=== PATIENT | female | born 1950 | race Caucasian/White ===

== ENCOUNTER 2018-07-19 08:09 | Outpatient (CLI) | payer MEDICARE ==
--- NOTE | 2018-07-19 11:59 | MMO ---
Bilateral MAMMO Bilat Screen [facility]. CLINICAL HISTORY: Patient is 67 years old and is seen for screening. The patient has the following family history of breast cancer: maternal grandmother. The patient has a history of other cancer. The patient has a history of right Stereotatic Biopsy in 2009 - benign and left Stereotatic Biopsy in 2009 - benign. VIEWS: The views performed were: bilateral craniocaudal with tomosynthesis and bilateral mediolateral oblique with tomosynthesis. FILMS COMPARED: The present examination has been compared to prior imaging studies performed at [facility] on 12/04/2008, 07/12/2010, 11/28/2012 and 12/10/2013. MAMMOGRAM FINDINGS: There are scattered fibroglandular densities. There are benign appearing calcifications. A biopsy clip is seen in the right breast. A biopsy clip is seen in the left breast. There are no suspicious masses, suspicious calcifications, or new areas of architectural distortion. IMPRESSION: THERE IS NO MAMMOGRAPHIC EVIDENCE OF MALIGNANCY. A ROUTINE FOLLOW-UP MAMMOGRAM IN 1 YEAR IS RECOMMENDED. THE RESULTS OF THIS EXAM WERE SENT TO THE PATIENT. ACR BI-RADS Category 2 - Benign finding MAMMOGRAPHY NOTE: 1. A negative mammogram report should not delay a biopsy if a dominant of clinically suspicious mass is present. 2. Approximately 10% to 15% of breast cancers are not detected by mammography. 3. Adenosis and dense breasts may obscure an underlying neoplasm.
== END 2018-07-19 08:10 | disposition home or self-care (01) ==
LOC: BICMAMMO 08:09
PROVIDERS: ATTEND Family Medicine
DX: Z12.31 Encounter for screening mammogram for malignant neoplasm of breast (principal); Z80.3 Family history of malignant neoplasm of breast; Z85.89 Personal history of malignant neoplasm of other organs and systems
CPT/HCPCS: 77063; 77067

== ENCOUNTER 2021-07-18 22:17 | Emergency (ER) | payer MEDICARE ==
[2021-07-18 23:19] LABS: #Eosinphils 0.2 thou/uL (0.0-0.7); #Lymphocytes 1.5 thou/uL (1.20-3.40); #Monocytes 0.7 thou/uL (0.11-0.59); #Neutrophils 5.9 thou/uL (1.40-6.50); %Basophils 0.4 % (0.0-1.0); %Eosinophils 2.2 % (0.0-10.0); %Lymphocytes 18.2 % (21.0-51.0); %Neutrophils 71.2 % (42.0-75.0); Hemoglobin 11.1 g/dL (12.0-16.0); Mean Corpuscular HGB CONC 32.5 g/dL (32.0-36.0); Mean Corpuscular Hemoglobin 29.1 pg (27.0-31.0); Mean Corpuscular Volume 89.5 fL (78.0-98.0); Mean Platelet Volume 6.5 fL (7.4-10.4); Platelet Count 219 thou/uL (130-400); RBC Distribution Width 13.1 % (11.5-14.5); Red Blood Cell (RBC) Count 3.82 mill/uL (4.20-5.40); White Blood Cell (WBC) Count 8.3 thou/uL (4.8-10.8)
[2021-07-18 23:42] LABS: ALT (SGPT) 18 U/L (8-55); AST (SGOT) 18 U/L (5-34); Acetaminophen Less than 10.0 mcg/mL (10.0-30.0); Albumin 3.8 g/dL (3.4-4.8); Alcohol Less than 10 mg/dL (Less than 10); Alkaline Phosphatase 55 U/L (40-110); Anion Gap 13 mmol/L (10-20); BUN (Urea Nitrogen) 30 mg/dL (9.8-20.1); Bilirubin, Total 0.2 mg/dL (0.2-1.2); Calc. Creatinine Clearance 0 mL/min (70-130); Calcium 10.6 mg/dL (7.8-10.44); Carbon Dioxide 24 mmol/L (23-31); Chloride 106 mmol/L (98-107); Globulin 2.9 g/dL (2.4-3.5); Glucose 132 mg/dL (83-110); Protein, Total 6.7 g/dL (5.8-8.1); Salicylate Less than 8.0 mg/dL (15.0-30.0); Sodium 139 mmol/L (136-145)
[2021-07-19] LABS: Bilirubin Negative (Negative); Blood, Urine Negative (Negative); Clarity Clear (Clear); Glucose, Urine (Dipstick) Normal (Negative); Ketone, Urine Negative (Negative); Leukocyte 75 Leu/uL (Negative); Nitrite Negative (Negative); Protein, Urine (Dipstick) Negative (Neg-Trace); RBC/HPF 0-3 HPF (0-3); Specific Gravity, Urine 1.015 (1.002-1.036); Squamous Epithelial 0-3 HPF (0-3); Urobilinogen Normal mg/dL (Less than 2); WBC/HPF 0-3 HPF (0-3)
[2021-07-19 00:02] LABS: Bacteria/HPF Rare-Few HPF (None Seen)
[2021-07-19 00:08] LABS: Amphetamine Not Detected (NotDetected); Barbiturates Screen Not Detected (NotDetected); Benzodiazepine Screen Not Detected (NotDetected); Cocaine Metabolite Screen Not Detected (NotDetected); Methadone Not Detected (NotDetected); Methamphetamine Not Detected (NotDetected); Opiate Screen Not Detected (NotDetected); Oxycodone Screen Not Detected (NotDetected); Phencyclidine (PCP) Not Detected (NotDetected); THC/Cannabinoid Screen Not Detected (NotDetected); Tricyclic Screen Detected (NotDetected)
[2021-07-19] MEDS ORDERED: Albuterol 200 PUFF (6.7GM INHALER) ONE ×3 (06:12→23:17)
[2021-07-19] MEDS ORDERED: Ondansetron ODT 8 MG TAB ONE ×2 (06:12→06:25)
[2021-07-19] MEDS ORDERED: Nicotine 14 MG PATCH TOP SCH (09:00)
[2021-07-19] MEDS ORDERED: Nicotine 14 MG PATCH ONE (10:39)
[2021-07-19] MEDS ORDERED: Divalproex Sodium 250 MG (DR) TAB ONE ×2 (11:31→23:17)
[2021-07-19] MEDS ORDERED: hydrOXYzine 25 MG TAB ONE (11:31)
[2021-07-19] MEDS ORDERED: Lisinopril 10 MG TAB ONE (11:31)
[2021-07-19] MEDS ORDERED: Folic Acid 1 MG TAB ONE (11:31)
[2021-07-19] MEDS ORDERED: Ondansetron ODT 4 MG TAB ONE (22:46)
[2021-07-19] MEDS ORDERED: Amlodipine 5 MG TAB ONE (23:17)
[2021-07-20] MEDS ORDERED: metFORMIN 500 MG TAB PO SCH ×2 (01:30→08:00)
[2021-07-20] MEDS ORDERED: Lidocaine 2% Viscous Solution 10 ML, Aluminum & Magnesium Hydroxide 30 ML SSW SCH (09:00)
== END 2021-07-20 12:13 ==
LOC: ERS 22:17
DX: F31.89 Other bipolar disorder (principal); F20.9 Schizophrenia, unspecified; I10 Essential (primary) hypertension; K21.9 Gastro-esophageal reflux disease without esophagitis; Z79.84 Long term (current) use of oral hypoglycemic drugs; Z79.899 Other long term (current) drug therapy; Z87.891 Personal history of nicotine dependence
CPT/HCPCS: 36415; 36416; 80053; 80306; 80307; 81003; 81015; 84443; 85025; 99285; Q0162

== ENCOUNTER 2021-08-10 16:43 | Emergency (ER) | payer MEDICARE ==
[2021-08-10 17:32] LABS: #Eosinphils 0.2 thou/uL (0.0-0.7); #Lymphocytes 1.6 thou/uL (1.20-3.40); #Monocytes 0.7 thou/uL (0.11-0.59); #Neutrophils 6.6 thou/uL (1.40-6.50); %Basophils 0.1 % (0.0-1.0); %Eosinophils 1.8 % (0.0-10.0); %Lymphocytes 17.7 % (21.0-51.0); %Monocytes 7.8 % (0.0-10.0); %Neutrophils 72.5 % (42.0-75.0); Hemoglobin 11.5 g/dL (12.0-16.0); Mean Corpuscular HGB CONC 31.8 g/dL (32.0-36.0); Mean Corpuscular Hemoglobin 28.1 pg (27.0-31.0); Mean Corpuscular Volume 88.3 fL (78.0-98.0); Mean Platelet Volume 5.9 fL (7.4-10.4); Platelet Count 343 thou/uL (130-400); RBC Distribution Width 13.3 % (11.5-14.5); Red Blood Cell (RBC) Count 4.11 mill/uL (4.20-5.40); White Blood Cell (WBC) Count 9.1 thou/uL (4.8-10.8)
[2021-08-10] MEDS ORDERED: Ondansetron ODT 4 MG TAB ONE (17:34)
[2021-08-10 17:53] LABS: Acetaminophen Less than 10.0 mcg/mL (10.0-30.0); Alcohol Less than 10 mg/dL (Less than 10); Salicylate Less than 8.0 mg/dL (15.0-30.0)
[2021-08-10 17:56] LABS: ALT (SGPT) 16 U/L (8-55); AST (SGOT) 13 U/L (5-34); Alkaline Phosphatase 63 U/L (40-110); Anion Gap 12 mmol/L (10-20); BUN (Urea Nitrogen) 26 mg/dL (9.8-20.1); Bilirubin, Total 0.4 mg/dL (0.2-1.2); Calc. Creatinine Clearance 0 mL/min (70-130); Calcium 10.7 mg/dL (7.8-10.44); Carbon Dioxide 27 mmol/L (23-31); Chloride 105 mmol/L (98-107); Globulin 3.2 g/dL (2.4-3.5); Glucose 124 mg/dL (83-110); Potassium 4.3 mmol/L (3.5-5.1); Protein, Total 7.2 g/dL (5.8-8.1); Sodium 140 mmol/L (136-145)
[2021-08-10 19:21] LABS: Bilirubin Negative (Negative); Blood, Urine Negative (Negative); Clarity Clear (Clear); Glucose, Urine (Dipstick) Normal (Negative); Ketone, Urine Negative (Negative); Leukocyte Negative Leu/uL (Negative); Nitrite Negative (Negative); Protein, Urine (Dipstick) Negative (Neg-Trace); Urobilinogen Normal mg/dL (Less than 2)
[2021-08-10 19:29] LABS: Amphetamine Not Detected (NotDetected); Barbiturates Screen Not Detected (NotDetected); Benzodiazepine Screen Not Detected (NotDetected); Cocaine Metabolite Screen Not Detected (NotDetected); Methadone Not Detected (NotDetected); Methamphetamine Not Detected (NotDetected); Opiate Screen Not Detected (NotDetected); Oxycodone Screen Not Detected (NotDetected); Phencyclidine (PCP) Not Detected (NotDetected); THC/Cannabinoid Screen Not Detected (NotDetected); Tricyclic Screen Not Detected (NotDetected)
[2021-08-11 00:39] LABS: SARS-CoV-2 NAA Rapid Test Not Detected (NotDetected)
[2021-08-11] MEDS ORDERED: metFORMIN 500 MG TAB PO SCH (08:00)
[2021-08-11] MEDS ORDERED: Amlodipine 5 MG TAB ONE (09:11)
[2021-08-11] MEDS ORDERED: hydrOXYzine Pamoate 25 mg Capsule ONE (09:11)
[2021-08-11] MEDS ORDERED: Lisinopril 10 MG TAB ONE (09:11)
== END 2021-08-11 14:11 ==
LOC: ERS 16:43
DX: F31.9 Bipolar disorder, unspecified (principal); I10 Essential (primary) hypertension; E11.9 Type 2 diabetes mellitus without complications; K21.9 Gastro-esophageal reflux disease without esophagitis; F17.210 Nicotine dependence, cigarettes, uncomplicated; Z20.822 Contact with and (suspected) exposure to COVID-19; Z79.84 Long term (current) use of oral hypoglycemic drugs; Z79.899 Other long term (current) drug therapy
CPT/HCPCS: 51701; 70450; 71045; 80306; 80307; 81003; 84146; 84484; 93005; 99285; U0002; 36415; 80053; 84443; 85025; Q0162; Q0177

== ENCOUNTER 2021-08-27 10:19 | Emergency (ER) | payer MEDICARE ==
[2021-08-27 11:31] LABS: #Eosinphils 0.3 thou/uL (0.0-0.7); #Lymphocytes 1.9 thou/uL (1.20-3.40); #Monocytes 0.7 thou/uL (0.11-0.59); #Neutrophils 7.5 thou/uL (1.40-6.50); %Basophils 0.3 % (0.0-1.0); %Eosinophils 2.5 % (0.0-10.0); %Lymphocytes 18.3 % (21.0-51.0); %Monocytes 6.6 % (0.0-10.0); %Neutrophils 72.3 % (42.0-75.0); Hemoglobin 12.1 g/dL (12.0-16.0); Mean Corpuscular HGB CONC 33.2 g/dL (32.0-36.0); Mean Corpuscular Hemoglobin 28.3 pg (27.0-31.0); Mean Corpuscular Volume 85.3 fL (78.0-98.0); Mean Platelet Volume 6.3 fL (7.4-10.4); Platelet Count 371 thou/uL (130-400); RBC Distribution Width 13.4 % (11.5-14.5); Red Blood Cell (RBC) Count 4.27 mill/uL (4.20-5.40); White Blood Cell (WBC) Count 10.4 thou/uL (4.8-10.8)
[2021-08-27 11:35] LABS: Bilirubin Negative (Negative); Blood, Urine Negative (Negative); Clarity Clear (Clear); Glucose, Urine (Dipstick) Normal (Negative); Ketone, Urine Negative (Negative); Leukocyte Negative Leu/uL (Negative); Nitrite Negative (Negative); Protein, Urine (Dipstick) Negative (Neg-Trace); Specific Gravity, Urine 1.008 (1.002-1.036); Urobilinogen Normal mg/dL (Less than 2); pH, Urine 5.5 (5.0-9.0)
[2021-08-27 11:45] LABS: Amphetamine Not Detected (NotDetected); Barbiturates Screen Not Detected (NotDetected); Benzodiazepine Screen Not Detected (NotDetected); Cocaine Metabolite Screen Not Detected (NotDetected); Methadone Not Detected (NotDetected); Methamphetamine Not Detected (NotDetected); Opiate Screen Not Detected (NotDetected); Oxycodone Screen Not Detected (NotDetected); Phencyclidine (PCP) Not Detected (NotDetected); THC/Cannabinoid Screen Not Detected (NotDetected); Tricyclic Screen Not Detected (NotDetected)
[2021-08-27 11:46] LABS: Acetaminophen Less than 10.0 mcg/mL (10.0-30.0); Alcohol Less than 10 mg/dL (Less than 10); Salicylate Less than 8.0 mg/dL (15.0-30.0)
[2021-08-27 11:48] LABS: ALT (SGPT) 22 U/L (8-55); AST (SGOT) 14 U/L (5-34); Albumin 4.3 g/dL (3.4-4.8); Alkaline Phosphatase 80 U/L (40-110); Anion Gap 17 mmol/L (10-20); BUN (Urea Nitrogen) 39 mg/dL (9.8-20.1); Bilirubin, Total 0.4 mg/dL (0.2-1.2); CK (CPK) 110 U/L (29-168); Calc. Creatinine Clearance 0 mL/min (70-130); Calcium 11.3 mg/dL (7.8-10.44); Carbon Dioxide 26 mmol/L (23-31); Chloride 100 mmol/L (98-107); Glucose 190 mg/dL (83-110); Potassium 4.2 mmol/L (3.5-5.1); Protein, Total 7.3 g/dL (5.8-8.1); Sodium 139 mmol/L (136-145)
[2021-08-27] MEDS ORDERED: Ondansetron ODT 4 MG TAB ONE (14:21)
[2021-08-28 09:52] LABS: SARS-CoV-2 NAA Rapid Test DETECTED (NotDetected)
[2021-08-28] MEDS ORDERED: Acetaminophen 325 MG Suppository ONE (21:03)
[2021-08-29] MEDS ORDERED: Amlodipine 10 MG TAB PO SCH (13:00)
[2021-08-29] MEDS ORDERED: metFORMIN 500 MG TAB PO SCH (13:00)
[2021-08-29] MEDS ORDERED: Lisinopril 20 MG TAB PO SCH (13:00)
[2021-08-29] MEDS ORDERED: Nicotine 21 MG PATCH TOP PRN (13:57)
[2021-08-30] MEDS ORDERED: metFORMIN 500 MG TAB PO SCH (13:15)
[2021-08-30] MEDS ORDERED: Amlodipine 10 MG TAB PO SCH (13:15)
[2021-08-30] MEDS ORDERED: Lisinopril 20 MG TAB PO SCH (13:15)
== END 2021-08-31 12:00 ==
LOC: ERS 10:19
DX: F31.9 Bipolar disorder, unspecified (principal); U07.1 COVID-19; K21.9 Gastro-esophageal reflux disease without esophagitis; I10 Essential (primary) hypertension; E11.9 Type 2 diabetes mellitus without complications; F17.210 Nicotine dependence, cigarettes, uncomplicated; Z79.899 Other long term (current) drug therapy
CPT/HCPCS: 80053; 80306; 80307; 81003; 82550; 82962; 84484; 85025; 93005; U0002; U0003; U0005; 36415; 36416; Q0162

== ENCOUNTER 2021-09-28 17:35 | Emergency (ER) | payer MEDICARE ==
[2021-09-28 18:23] LABS: #Basophils 0.1 thou/uL (0.0-0.2); #Eosinphils 0.2 thou/uL (0.0-0.7); #Lymphocytes 2.1 thou/uL (1.20-3.40); #Monocytes 0.6 thou/uL (0.11-0.59); #Neutrophils 7.1 thou/uL (1.40-6.50); %Basophils 0.7 % (0.0-1.0); %Eosinophils 2.1 % (0.0-10.0); %Lymphocytes 20.6 % (21.0-51.0); %Monocytes 6.3 % (0.0-10.0); %Neutrophils 70.3 % (42.0-75.0); Mean Corpuscular HGB CONC 33.1 g/dL (32.0-36.0); Mean Corpuscular Hemoglobin 28.2 pg (27.0-31.0); Mean Corpuscular Volume 85.2 fL (78.0-98.0); Mean Platelet Volume 6.5 fL (7.4-10.4); Platelet Count 379 thou/uL (130-400); RBC Distribution Width 15.1 % (11.5-14.5); Red Blood Cell (RBC) Count 4.63 mill/uL (4.20-5.40); White Blood Cell (WBC) Count 10.1 thou/uL (4.8-10.8)
[2021-09-28 18:40] LABS: ALT (SGPT) 21 U/L (8-55); AST (SGOT) 16 U/L (5-34); Albumin 4.4 g/dL (3.4-4.8); Alkaline Phosphatase 81 U/L (40-110); Anion Gap 15 mmol/L (10-20); BUN (Urea Nitrogen) 21 mg/dL (9.8-20.1); Bilirubin, Total 0.3 mg/dL (0.2-1.2); Calc. Creatinine Clearance 0 mL/min (70-130); Calcium 11.1 mg/dL (7.8-10.44); Carbon Dioxide 21 mmol/L (23-31); Chloride 106 mmol/L (98-107); Estimated GFR 59; Globulin 3.3 g/dL (2.4-3.5); Glucose 110 mg/dL (83-110); Lipase 160 U/L (8-78); Potassium 4.2 mmol/L (3.5-5.1); Protein, Total 7.7 g/dL (5.8-8.1); Sodium 138 mmol/L (136-145)
[2021-09-28 18:46] LABS: Acetaminophen Less than 10.0 mcg/mL (10.0-30.0); Alcohol Less than 10 mg/dL (Less than 10); Salicylate Less than 8.0 mg/dL (15.0-30.0)
[2021-09-28 20:08] LABS: Bilirubin Negative (Negative); Blood, Urine Negative (Negative); Clarity Clear (Clear); Glucose, Urine (Dipstick) Normal (Negative); Ketone, Urine Negative (Negative); Leukocyte Negative Leu/uL (Negative); Nitrite Negative (Negative); Protein, Urine (Dipstick) Negative (Neg-Trace); Specific Gravity, Urine 1.019 (1.002-1.036); Urobilinogen Normal mg/dL (Less than 2)
[2021-09-28 20:15] LABS: Amphetamine Not Detected (NotDetected); Barbiturates Screen Not Detected (NotDetected); Benzodiazepine Screen Detected (NotDetected); Cocaine Metabolite Screen Not Detected (NotDetected); Methadone Not Detected (NotDetected); Methamphetamine Not Detected (NotDetected); Opiate Screen Not Detected (NotDetected); Oxycodone Screen Not Detected (NotDetected); Phencyclidine (PCP) Not Detected (NotDetected); THC/Cannabinoid Screen Not Detected (NotDetected); Tricyclic Screen Detected (NotDetected)
[2021-09-28] MEDS ORDERED: Acetaminophen 500 MG TAB ONE (21:48)
[2021-09-29] MEDS ORDERED: hydrOXYzine 25 MG TAB ONE (00:50)
[2021-09-29 09:01] LABS: SARS-CoV-2 NAA Rapid Test DETECTED (NotDetected)
[2021-09-29] MEDS ORDERED: Acetaminophen 500 MG TAB ONE (23:03)
[2021-09-29] MEDS ORDERED: OLANZapine 5 MG TAB PO SCH (23:15)
== END 2021-09-30 16:13 ==
LOC: ERS 17:35
DX: U07.1 COVID-19 (principal); R45.851 Suicidal ideations; K21.9 Gastro-esophageal reflux disease without esophagitis; I10 Essential (primary) hypertension; E11.9 Type 2 diabetes mellitus without complications; F17.210 Nicotine dependence, cigarettes, uncomplicated; Z79.899 Other long term (current) drug therapy; Z79.84 Long term (current) use of oral hypoglycemic drugs
CPT/HCPCS: 0240U; 70450; 71046; 80306; 80307; 81003; 83690; 84484; 93005; 94760; 36415; 80053; 84443; 85025

== ENCOUNTER 2021-11-13 21:10 | Inpatient (IN) | payer MEDICARE ==
[2021-11-13 22:04] LABS: #Eosinphils 0.3 thou/uL (0.0-0.7); #Lymphocytes 1.7 thou/uL (1.20-3.40); #Monocytes 0.7 thou/uL (0.11-0.59); #Neutrophils 5.4 thou/uL (1.40-6.50); %Basophils 0.5 % (0.0-1.0); %Eosinophils 3.5 % (0.0-10.0); %Monocytes 8.4 % (0.0-10.0); %Neutrophils 66.7 % (42.0-75.0); Hemoglobin 12.4 g/dL (12.0-16.0); Mean Corpuscular Hemoglobin 28.6 pg (27.0-31.0); Mean Corpuscular Volume 86.6 fL (78.0-98.0); Mean Platelet Volume 6.5 fL (7.4-10.4); Platelet Count 331 thou/uL (130-400); Red Blood Cell (RBC) Count 4.32 mill/uL (4.20-5.40)
[2021-11-13 22:22] LABS: Acetaminophen Less than 10.0 mcg/mL (10.0-30.0); Alcohol Less than 10 mg/dL (Less than 10); Salicylate Less than 8.0 mg/dL (15.0-30.0)
[2021-11-13 22:23] LABS: ALT (SGPT) 21 U/L (8-55); AST (SGOT) 18 U/L (5-34); Albumin 4.1 g/dL (3.4-4.8); Alkaline Phosphatase 63 U/L (40-110); Anion Gap 14 mmol/L (10-20); BUN (Urea Nitrogen) 15 mg/dL (9.8-20.1); Bilirubin, Total 0.3 mg/dL (0.2-1.2); CK (CPK) 60 U/L (29-168); Calc. Creatinine Clearance 0 mL/min (70-130); Calcium 10.1 mg/dL (7.8-10.44); Carbon Dioxide 24 mmol/L (23-31); Chloride 107 mmol/L (98-107); Estimated GFR 73; Glucose 101 mg/dL (83-110); Potassium 4.3 mmol/L (3.5-5.1); Protein, Total 7.1 g/dL (5.8-8.1); Sodium 141 mmol/L (136-145)
[2021-11-13 22:34] LABS: Digoxin Less than 0.15 ng/mL (0.8-2.0)
[2021-11-13] MEDS ORDERED: Aspirin Chewable 81 MG TAB ONE (22:36)
[2021-11-13 22:41] LABS: Bilirubin Negative (Negative); Blood, Urine Negative (Negative); Clarity Clear (Clear); Glucose, Urine (Dipstick) Normal (Negative); Ketone, Urine Negative (Negative); Leukocyte Negative Leu/uL (Negative); Nitrite Negative (Negative); Protein, Urine (Dipstick) 20 mg/dL (Neg-Trace); Specific Gravity, Urine 1.011 (1.002-1.036); Urobilinogen Normal mg/dL (Less than 2); pH, Urine 7.5 (5.0-9.0)
[2021-11-13 22:49] LABS: Amphetamine Not Detected (NotDetected); Barbiturates Screen Not Detected (NotDetected); Benzodiazepine Screen Not Detected (NotDetected); Cocaine Metabolite Screen Not Detected (NotDetected); Methadone Not Detected (NotDetected); Methamphetamine Not Detected (NotDetected); Opiate Screen Not Detected (NotDetected); Oxycodone Screen Not Detected (NotDetected); Phencyclidine (PCP) Not Detected (NotDetected); THC/Cannabinoid Screen Not Detected (NotDetected); Tricyclic Screen Not Detected (NotDetected)
[2021-11-13] MEDS ORDERED: Acetaminophen 650 MG Suppository PR PRN (23:40)
[2021-11-13] MEDS ORDERED: Senokot S 8.6-50 MG TAB PO PRN (23:40)
[2021-11-13] MEDS ORDERED: Ondansetron ODT 4 MG TAB PO PRN (23:40)
[2021-11-13] MEDS ORDERED: Bisacodyl 5 MG TAB PO PRN (23:40)
[2021-11-14 01:32] LABS: Troponin I Less than 0.010 ng/mL (< 0.028)
[2021-11-14] MEDS: Ondansetron PF 4 MG/2 ML Vial IVP PRN (03:43)
[2021-11-14 05:12] LABS: Troponin I Less than 0.010 ng/mL (< 0.028)
[2021-11-14 06:10] VITALS: BMI 34.6
[2021-11-14] MEDS: Famotidine/PF 20 mg/2ml Vial SLOW IVP SCH ×2 (10:27→21:24)
[2021-11-14] MEDS: Enoxaparin Sodium 40 MG/0.4 ML SYRINGE SC SCH (10:28)
[2021-11-14] MEDS: Aspirin Chewable 81 MG TAB PO SCH (10:28)
[2021-11-14] MEDS: Famotidine 20 MG TAB PO SCH ×2 (10:28→21:23)
[2021-11-14] MEDS: Acetaminophen 325 MG TAB PO PRN ×2 (17:43→21:29)
[2021-11-15] MEDS: Famotidine/PF 20 mg/2ml Vial SLOW IVP SCH (09:38)
[2021-11-15] MEDS: Enoxaparin Sodium 40 MG/0.4 ML SYRINGE SC SCH (09:38)
[2021-11-15] MEDS: Famotidine 20 MG TAB PO SCH (09:38)
[2021-11-15] MEDS: Aspirin Chewable 81 MG TAB PO SCH (09:38)
[2021-11-15] MEDS: Ondansetron PF 4 MG/2 ML Vial IVP PRN (13:33)
[2021-11-15] MEDS: Acetaminophen 325 MG TAB PO PRN (13:34)
[2021-11-15] MEDS ORDERED: Nicotine 14 MG PATCH TD SCH (17:00)
[2021-11-15] MEDS ORDERED: Donepezil HCl 10 MG TAB PO SCH (21:00)
[2021-11-16] MEDS ORDERED: Cepastat Lozenges 1 LOZ PO PRN (01:10)
[2021-11-16 08:17] VITALS: TEMP 97.2
[2021-11-16] MEDS: Aspirin Chewable 81 MG TAB PO SCH (08:46)
[2021-11-16] MEDS: Enoxaparin Sodium 40 MG/0.4 ML SYRINGE SC SCH (08:47)
[2021-11-16] MEDS ORDERED: Lisinopril 20 MG TAB PO SCH (09:00)
[2021-11-16] MEDS ORDERED: Amlodipine 10 MG TAB PO SCH (09:00)
[2021-11-16] MEDS: Acetaminophen 325 MG TAB PO PRN (10:46)
[2021-11-16] MEDS: Ondansetron PF 4 MG/2 ML Vial IVP PRN (10:46)
[2021-11-16 11:08] VITALS: BP 142/81
== END 2021-11-16 12:28 | DRG 885 ==
LOC: ERS 21:10 → NEURO 23:08 → OBSVTOIN 11-14 14:04 → SURG A 11-15 22:49
PROVIDERS: ADMIT Student in an Organized Health Care Education/Training Program; ATTEND Student in an Organized Health Care Education/Training Program
DX: F31.2 Bipolar disorder, current episode manic severe with psychotic features (principal); R45.851 Suicidal ideations; R07.89 Other chest pain; Z20.822 Contact with and (suspected) exposure to COVID-19; Z90.710 Acquired absence of both cervix and uterus; Z83.3 Family history of diabetes mellitus; Z82.49 Family history of ischemic heart disease and other diseases of the circulatory system; Z80.8 Family history of malignant neoplasm of other organs or systems; Z80.1 Family history of malignant neoplasm of trachea, bronchus and lung; I25.2 Old myocardial infarction; Z79.899 Other long term (current) drug therapy
CPT/HCPCS: 36415; 71045; 80053; 80162; 80178; 80306; 80307; 81003; 82550; 84443; 84484; 85025; 93005; 93010; 93306; 94760; 96372; 96374; 96375; G0378; J1650; J2405; S0028; U0003; U0005